=== PATIENT | male | born 1985 | race Caucasian/White ===

== ENCOUNTER 2016-06-23 10:29 | Emergency (ER) | payer OTHER ==
[~2016-06-23] VITALS: Wt 78.0 kg
[~2016-06-23 10:29] MED LIST: ALBU8.5H3; AMOX1TAB10; IBUP-1542; PRED20TA
[2016-06-23] MEDS ORDERED: ACETAMINOPHEN 500 MG TAB PO STA (13:07)
[2016-06-23] MEDS ORDERED: IPRATROPIUM (NEB) 0.5 MG/2.5 ML AMP NEB STA (13:07)
[2016-06-23] MEDS ORDERED: LEVALBUTEROL (NEB) 1.25 MG/0.5 ML AMP INH STA (13:07)
--- NOTE | 2016-06-23 14:19 | RADRPT ---
PROCEDURE: Chest Radiograph. CLINICAL INDICATION: Fever. Cough. TECHNIQUE: Single frontal chest radiograph. COMPARISON: Chest radiograph 02/12/2012 FINDINGS: Heart size is within normal limits. There is mild prominence of central pulmonary vasculature which appears stable compared . No confluent or lobar infiltrate is seen. No pleural eff usion is identified. The bones are intact IMPRESSION: 1. No evidence of acute cardiopulmonary disease. RPTAT: KK .Braulio Judd MD, Date Time Electronically viewed and signed by .Braulio Judd MD, MD on 06/23/2016 14:19 .B/
--- NOTE | 2016-06-23 14:34 | ERD ---
ER Documentation Chief Complaint Date/Time DATE: 06/23/16 TIME: 14:24 Chief Complaint FEVER AND COUGHING FOR THE PAST FEW DAYS WITH NO RELEIF WITH ALBUTEROL HPI This a 30-year-old male who presents to the emergency department today with his mother for fever and cough for the past few days. States he has a history of asthma and was born premature. States that he has some developmental delays and he is also deaf. States that she has been given his nebulizer but it is not helping. He has not taken any medication for his fever. ROS All systems reviewed and are negative except as per history of present illness. Medications Home Meds Active Scripts Guaifenesin-Dextromethorphan* (Robitussin* DM) 100MG/10MG/5ML Syrup, 10 ML PO Q4H Y for COUGH for 5 Days, ML Prov:LESLY GUARDADO PA-C 06/23/16 Acetaminophen* (Tylophen*) 500 Mg Capsule, 1 CAP PO Q6H Y for PAIN AND OR ELEVATED TEMP, #30 CAP Prov:LESLY GUARDADO PA-C 06/23/16 Ibuprofen* (Motrin*) 600 Mg Tab, 600 MG PO Q6, #30 TAB Prov:LESLY GUARDADO PA-C 06/23/16 Azithromycin* (Zithromax*) 250 Mg Tablet, 250 MG PO .ZPACK DIRECTED, #6 TAB TAKE 500 MG (2 TABS) THE FIRST DAY THEN 250 MG (1 TAB) DAYS 2-5 Prov:LESLY GUARDADO PA-C 06/23/16 Reported Medications Amox Tr/Potassium Clavulanate (Amox Tr-K Clv 875-125 Mg Tab) 1 Tab Tablet, BID 02/13/12 Prednisone (Prednisone) 20 Mg Tablet, 2 TAB DAILY 02/13/12 Ibuprofen* (Ibuprofen*) 600 Mg Tablet 02/13/12 Albuterol Sulfate* (Proair HFA*) 8.5 Gm Hfa.aer.ad, PRN 02/12/12 Allergies Allergies: Coded Allergies: No Known Allergy (Unverified , 06/23/16) PMhx/Soc History of Surgery: Yes (equinus correction) Anesthesia Reaction: No Hx Neurological Disorder: No Hx Respiratory Disorders: Yes (ASTHMA) Hx Cardiac Disorders: Yes (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 Nose mild clear drainage. Throat no erythema no exudate Neck: Full range of motion..~ No meningismus. Resp: Clear to auscultation bilaterally Cardio: Regular rate and rhythm, no murmurs Skin: No petechiae or rashes Neur: Awake and alert Psych: Normal Mood and Affect Results 24 hrs Current Medications Medications (Trade) Dose Ordered Sig/Harinder Route PRN Reason Start Time Stop Time Status Last Admin Dose Admin Ipratropium [place] (Atrovent 0.02% (Neb)) 0.5 mg ONCE STAT NEB 06/23/16 13:07 06/23/16 13:10 DC 06/23/16 13:17 Levalbuterol (Xopenex Neb) 1.25 mg ONCE STAT INH 06/23/16 13:07 06/23/16 13:10 DC 06/23/16 13:17 Acetaminophen (Tylenol Tab) 500 mg ONCE STAT PO 06/23/16 13:07 06/23/16 13:10 DC 06/23/16 13:22 DIAGNOSTIC IMAGING REPORT Patient: EVE RAMOS : 1985 Age: 30 Sex: M MR #: [id number] DOS: 06/23/16 1307 Ordering MD: LESLY GUARDADO PA-C [facility] Room/Bed: PROCEDURE: Chest Radiograph. CLINICAL INDICATION: Fever. Cough. TECHNIQUE: Single frontal chest radiograph. COMPARISON: Chest radiograph 02/12/2012 FINDINGS: Heart size is within normal limits. There is mild prominence of central pulmonary vasculature which appears stable compared twelfth . No confluent or lobar infiltrate is seen. No pleural effusion is identified. The bones are intact IMPRESSION: 1. No evidence of acute cardiopulmonary disease. RPTAT: KK .Braulio Judd MD, Date Time Electronically viewed and signed by .Braulio Judd MD, MD on 2016 14:19 .B/ CC: LESLY GUARDADO PA-C Procedures/MDM This is a 30-year-old male who presents to the emergency department today for fever and cough for the past 3 days. Mother had been giving the patient who lives with her and is taking care of him his albuterol inhalers and nebulizer treatments with no improvement in cough. She did not give him any medication for his fever. Patient came to the ER and had a low-grade fever of 100.4. He was tachycardic. His oxygen saturation is 97%. Given patient's history of pneumonia in 2011, I did obtain a chest x-ray Chest x-ray shows no evidence of acute cardiopulmonary disease. There is no pleural effusion, confluent or lobar infiltrate seen. Patient was given Tylenol here in the emergency department for his fever. I did also give the patient a breathing treatment however patient did not appear to have wheezing on physical exam although it was difficult to get the patient to take a deep breath as he is deaf and mother was trying to get him to follow instructions. Patient symptoms at this time most consistent with URI likely viral. I do not feel the patient is having an asthma exacerbation. I do not feel the patient requires steroids for home. Mother is requesting antibiotics. I have explained to her that I feel that this is a viral infection however she is concerned that he has " bronchitis or something" . I agreed to give the patient a prescription for azithromycin to take in a few days if he has no improvement in symptoms. Will be given a prescription for Robitussin, Tylenol, Motrin. At this time the patient is stable for discharge and outpatient management. Patient should follow up with their PCP in the next 1-2 days. They may return to the emergency department sooner for any persistent or worsening of symptoms. Mother understood and agreed with the plan. Departure Diagnosis: Primary Impression: URI (upper respiratory infection) URI type: unspecified URI Qualified Code: J06.9 - Upper respiratory tract infection, unspecified type Condition: LESLY Paige PA-C June 23, 2016 14:34
[2016-06-23] MEDS ORDERED: AZIT250T94 PO (14:35)
[2016-06-23] MEDS ORDERED: IBUP-1542 PO (14:35)
[2016-06-23] MEDS ORDERED: ACET500C5 PO (14:35)
[2016-06-23] MEDS ORDERED: UDROBDM PO (14:36)
[2016-06-23 14:45] VITALS: BP 116/79; PULSE 84; RESP 21; TEMP 98.3
== END 2016-06-23 14:56 | disposition home or self-care (01) ==
LOC: FTE 10:29
DX: J06.9 Acute upper respiratory infection, unspecified (principal); J45.909 Unspecified asthma, uncomplicated; R05 Cough
CPT/HCPCS: 71010; 94664; Z7502; Z7610

== ENCOUNTER 2016-06-24 23:42 | Emergency (ER) | payer OTHER ==
[~2016-06-24] VITALS: Ht 165.1 cm; Wt 75.5 kg
[~2016-06-24 23:42] MED LIST changes: +ACET500C5 PO; +AZIT250T94 PO; +IBUP-1542 PO; +UDROBDM PO
[2016-06-24 23:51] VITALS: Ht 165.1 cm; Wt 75.5 kg
[2016-06-25] MEDS ORDERED: METHYLPREDNISOLONE 125 MG INJ IM STA (00:27)
[2016-06-25] MEDS ORDERED: ALBUTEROL 0.5% (NEB) 2.5 MG/0.5 ML AMP INH STA (00:27)
[2016-06-25] MEDS ORDERED: IPRATROPIUM (NEB) 0.5 MG/2.5 ML AMP NEB STA (00:27)
--- NOTE | 2016-06-25 00:53 | ERD ---
ER Documentation Chief Complaint Date/Time DATE: 06/25/16 TIME: 00:45 Chief Complaint cough x 4 days. was here yesterday for same HPI 30-year-old male presents with emergency department for complaints of cough and wheezing for 4 days. Patient has been having dry cough, does not cough up any phlegm or blood. Patient has history of chronic pulmonary issues, and his history of asthma. Patient was seen here in emergency department 2 days ago for the same problem, patient was given medications to help with symptoms with only moderate. Patient's mom states the patient continues to have the wheezing and the cough, not better with symptoms. ROS All systems reviewed and are negative except as per history of present illness. Medications Home Meds Active Scripts Prednisone* (Prednisone*) 50 Mg Tablet, 50 MG PO DAILY for 5 Days, TAB Prov:SERA OCHOA NP 06/25/16 Albuterol Sulfate* (Albuterol Sulfate* Neb) 0.083%-3 Ml Neb, 5 MG NEB Q4 Y for SHORTNESS OF BREATH, #30 EA Prov:SERA OCHOA NP 06/25/16 Guaifenesin-Dextromethorphan* (Robitussin* DM) 100MG/10MG/5ML Syrup, 10 ML PO Q4H Y for COUGH for 5 Days, ML Prov:LESLY GUARDADO PA-C 06/23/16 Acetaminophen* (Tylophen*) 500 Mg Capsule, 1 CAP PO Q6H Y for PAIN AND OR ELEVATED TEMP, #30 CAP Prov:LESLY GUARDADO PA-C 06/23/16 Ibuprofen* (Motrin*) 600 Mg Tab, 600 MG PO Q6, #30 TAB Prov:LESLY GUARDADO PA-C 06/23/16 Azithromycin* (Zithromax*) 250 Mg Tablet, 250 MG PO .ANGELINE DIRECTED, #6 TAB TAKE 500 MG (2 TABS) THE FIRST DAY THEN 250 MG (1 TAB) DAYS 2-5 Prov:LESLY GUARDADO PA-C 06/23/16 Reported Medications Amox Tr/Potassium Clavulanate (Amox Tr-K Clv 875-125 Mg Tab) 1 Tab Tablet, BID 02/13/12 Prednisone (Prednisone) 20 Mg Tablet, 2 TAB DAILY 02/13/12 Ibuprofen* (Ibuprofen*) 600 Mg Tablet 02/13/12 Albuterol Sulfate* (Proair HFA*) 8.5 Gm Hfa.aer.ad, PRN 02/12/12 Allergies Allergies: Coded Allergies: No Known Allergy (Unverified , 06/24/16) PMhx/Soc History of Surgery: Yes (equinus correction) Anesthesia Reaction: No Hx Neurological Disorder: No Hx Respiratory Disorders: Yes (ASTHMA) Hx Cardiac Disorders: Yes (POOR 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 CHEST: Diffuse wheezing noted bilaterally. There are no rales, crackles or rhonchi. HEART: Regular rate and rhythm. No murmurs, clicks, rubs or gallops. No S3 or S4. ABDOMEN: Soft, nontender and nondistended. Good bowel sounds. No rebound or guarding. No gross peritonitis. No gross organomegaly or masses. No Day sign or McBurney point tenderness. BACK: No midline or flank tenderness. EXTREMITIES: Equal pulses bilaterally. There is no peripheral clubbing, cyanosis or edema. No focal swelling or erythema. Full range of motion. Grossly neurovascularly intact. NEURO: Alert and oriented. Cranial nerves 2-12 intact. Motor strength in all 4 extremities with 5/5 strength. Sensation grossly intact. Normal speech and gait. SKIN: There is no apparent rash or petechia. The skin is warm and dry. HEMATOLOGIC AND LYMPHATIC: There is no evidence of excessive bruising or lymphedema. No gross cervical, axillary, or inguinal lymphadenopathy. Results 24 hrs Current Medications Medications (Trade) Dose Ordered Sig/Harinder Route PRN Reason Start Time Stop Time Status Last Admin Dose Admin Ipratropium [place] (Atrovent 0.02% (Neb)) 0.5 mg ONCE STAT NEB 06/25/16 00:27 06/25/16 00:29 DC 06/25/16 00:53 Albuterol (Proventil 0.5% (Neb)) 10 mg ONCE STAT INH 06/25/16 00:27 06/25/16 00:29 DC 06/25/16 00:53 Methylprednisolone Sodium Succinate 125 mg 125 mg ONCE STAT IM 06/25/16 00:27 06/25/16 00:29 DC 06/25/16 00:45 Sodium Chloride (NS) 1,000 ml @ 1,000 mls/hr Q1H STAT IV 06/25/16 01:09 06/25/16 02:08 Cancel Morphine Sulfate (morphine) 4 mg ONCE STAT IV 06/25/16 01:09 06/25/16 01:10 Cancel Ondansetron HCl (Zofran Inj) 4 mg ONCE STAT IV 06/25/16 01:09 06/25/16 01:10 Cancel Breathing treatment of albuterol and Atrovent was given here in emergency department, after treatment, patient's lungs sounds are clear and patient's oxygenation is better. Patient verbalized feeling much better. PROCEDURE: XR Chest. CLINICAL INDICATION: Asthma exacerbation. TECHNIQUE: Portable AP upright view of the chest was obtained. COMPARISON: 02/12/2012 FINDINGS: The cardiomediastinal silhouette is within normal limits. Perihilar peribronchial thickening emanating into the upper lobes bilaterally is concerning for superimposed bronchitis or bronchiolitis. The diaphragm is normal in position and there has been resolution of bibasilar air space disease. There is no evidence for pleural effusion, pneumothorax or pulmonary vascular congestion. The osseous structures are intact with no evidence for acute abnormality. RPTAT:HJJR IMPRESSION: 1. Bilateral perihilar peribronchial thickening emanating into the upper lobes concerning for bronchitis. 2. Normal position of the diaphragm without evidence of hyperinflation. Physician Lisha Date Time Electronically viewed and signed by Physician Lisha on 06/25/2016 00:57 JR/ CC: SERA OCHOA DEXIGRAPH OPERATOR Procedures/MDM Medical Decision Making: Patient symptoms are most likely consistent with acute bronchitis, which viral in origin. There is low suspicion for Pneumonia at this time since patients lungs sounds are clear, patient O2 saturation is normal and patient doesnt show any respiratory distress. Patients chest xray doesnt show infiltrates or any other cardiopulmonary emergencies at this time. There is low suspicion for other cardiopulmonary emergencies at this time such as CHF, Pulmonary Embolism, Pneumothorax, Aortic Aneurysm or any other cardiopulmonary emergencies at this time. There is low suspicion for sepsis. Patient appears well and is hemodynamically stable. Fever is controlled with medicines. Disposition: Home. Condition: Stable Prescriptions: Predisone, Albuterol, continue Zpak Instructions: Patient is advised to take medications as prescribed. Patient is advised to rest. Patient advised to increase fluid intake, do humidifier at home and if possible, do salt water gargles. Patient is advised that if symptoms are worse, shortness of breath, uncontrolled fever, stridor, vomiting, worst signs and symptoms to return to emergency department immediately. Otherwise, patient is advised to follow up with primary doctor in 5-7 days. Departure Diagnosis: Primary Impression: Acute bronchitis Bronchitis organism: unspecified organism Qualified Code: J20.9 - Acute bronchitis, unspecified organism Condition: Stable Patient Instructions: Bronchitis With Wheezing (Adult) Additional Instructions: Prescriptions: Predisone, Albuterol, continue Zpak Instructions: Patient is advised to take medications as prescribed. Patient is advised to rest. Patient advised to increase fluid intake, do humidifier at home and if possible, do salt water gargles. Patient is advised that if symptoms are worse, shortness of breath, uncontrolled fever, stridor, vomiting, worst signs and symptoms to return to emergency department immediately. Otherwise, patient is advised to follow up with primary doctor in 5-7 days. SERA OCHOA NP June 25, 2016 00:53
--- NOTE | 2016-06-25 00:57 | RADRPT ---
PROCEDURE: XR Chest. CLINICAL INDICATION: Asthma exacerbation. TECHNIQUE: Portable AP upright view of the chest was obtained. COMPARISON: 02/12/2012 FINDINGS: The cardiomediastinal silhouette is within normal limits. Perihilar peribronchial thickening emanat ing into the upper lobes bilaterally is concerning for superimposed bronchitis or bronchiolitis. Th e diaphragm is normal in position and there has been resolution of bibasilar air space disease. The re is no evidence for pleural effusion, pneumothorax or pulmonary vascular congestion. The osseous structures are intact with no evidence for acute abnormality. RPTAT:HJJR IMPRESSION: 1. Bilateral perihilar peribronchial thickening emanating into the upper lobes concerning for bronc hitis. 2. Normal position of the diaphragm without evidence of hyperinflation. Physician Lisha Date Time Electronically viewed and signed by Chris Johnson Physician on 06/25/2016 00:57 /
[2016-06-25] MEDS ORDERED: SOD CHLORIDE 0.9% 1,000 ML IV STA (01:09)
[2016-06-25] MEDS ORDERED: morphine 4 MG/ML VIAL IV STA (01:09)
[2016-06-25] MEDS ORDERED: ONDANSETRON 4 MG INJ IV STA (01:09)
[2016-06-25] MEDS ORDERED: ALBU2.5V3 NEB (02:15)
[2016-06-25] MEDS ORDERED: PRED50TA PO (02:15)
[2016-06-25 02:20] VITALS: BP 124/69; PULSE 104; RESP 20; TEMP 99
== END 2016-06-25 02:21 | disposition home or self-care (01) ==
LOC: FTE 23:42
DX: J20.9 Acute bronchitis, unspecified (principal); J45.909 Unspecified asthma, uncomplicated; F17.210 Nicotine dependence, cigarettes, uncomplicated
CPT/HCPCS: 71010; 94644; J2930; Z7610; 96372; J7030